=== PATIENT | female | born 1960 | race Caucasian/White ===

== ENCOUNTER 2024-10-12 12:11 | Inpatient (IN) | payer OTHER ==
[~2024-10-12] VITALS: Ht 167.6 cm; Wt 71.8 kg
[2024-10-12] MEDS: MORPHINE 2 MG/ML 1ML VIAL IV ONE ×2 (12:23→13:27)
[2024-10-12 12:40] LABS: BASO # 0.2 10^3/uL (0.0-0.2); BASO % 0.9 % (0.0-1.0); EOS # 0.3 10^3/uL (0.0-0.5); EOS % 1.9 % (0.0-3.0); HEMATOCRIT 32.7 % (36.0-47.0); HEMOGLOBIN 10.7 g/dl (12.0-15.5); LYMPH # 3.8 10^3/uL (1.5-5.0); LYMPH % 21.1 % (24.0-44.0); MEAN CORPUSCULAR HGB CONC 32.7 g/dl (32.0-36.5); MEAN CORPUSCULAR VOLUME 97.9 fl (80.0-96.0); MONO # 1.2 10^3/uL (0.0-0.8); MONO % 6.7 % (2.0-8.0); NEUTROPHILS # 12.3 10^3/uL (1.5-8.5); NEUTROPHILS % 68.7 % (36.0-66.0); PLATELET COUNT, AUTOMATED 614 10^3/uL (150-450); RED BLOOD COUNT 3.34 10^6/uL (4.00-5.40); WHITE BLOOD COUNT 17.8 10^3/uL (4.0-10.0)
[2024-10-12] MEDS: ceFAZolin SOD 1 GM in DEXTROSE 5% (D5W) ADV/MINI-BAG 50 ML IV ONE (12:55)
[2024-10-12 13:13] LABS: BLOOD UREA NITROGEN 12 MG/DL (9-23); CALCIUM LEVEL 9.7 MG/DL (8.3-10.6); CARBON DIOXIDE LEVEL 29 MMOL/L (20-31); CHLORIDE LEVEL 106 MMOL/L (98-107); CREATININE FOR GFR 0.51 MG/DL (0.55-1.30); GLOMERULAR FILTRATION RATE > 90.0 (>45); GLUCOSE, FASTING 108 MG/DL (74-106); SODIUM LEVEL 142 MMOL/L (136-145)
[2024-10-12] MEDS ORDERED: DILT180C70 PO (15:26)
[2024-10-12] MEDS ORDERED: ZOLP5TAB PO (15:26)
[2024-10-12] MEDS ORDERED: CELE0.09 PO (15:26)
[2024-10-12] MEDS ORDERED: LEVO75TA4 PO (15:26)
[2024-10-12] MEDS ORDERED: DULO1CAP6 PO (15:26)
[2024-10-12] MEDS ORDERED: ASPI-226 PO (15:26)
[2024-10-12] MEDS ORDERED: ROSU10TA61 PO (15:26)
[2024-10-12] MEDS ORDERED: VALS160T2 PO (15:26)
[2024-10-12] MEDS ORDERED: OMEP-173 PO (15:26)
[2024-10-12] MEDS ORDERED: HOME MED LIST COMPLETE! XX SCH (15:30)
[2024-10-12] MEDS ORDERED: LR 1,000 ML IV SCH (16:00)
[2024-10-12] MEDS: DOXYCYCLINE HYCLATE 100 MG in DEXTROSE 5% (D5W) MINI-BAG PLU 100 ML IV SCH (16:01)
[2024-10-12 16:13] LABS: APPEARANCE, URINE HAZY (CLEAR); BACTERIA, URINE AUTO 1+ (NEGATIVE); BILIRUBIN, URINE AUTO 1+ (NEGATIVE); BLOOD, URINE BLOOD NEGATIVE (NEGATIVE); COLOR, URINE AMBER (YELLOW); GLUCOSE, URINE (UA) AUTO NEGATIVE (NEGATIVE); KETONE, URINE AUTO TRACE mg/dL (NEGATIVE); LEUKOCYTE ESTERASE, URINE AUTO NEGATIVE (NEGATIVE); MUCUS, URINE MODERATE (NEGATIVE); NITRITE, URINE AUTO NEGATIVE (NEGATIVE); PROTEIN, URINE AUTO 2+ mg/dL (NEGATIVE); RBC, URINE AUTO 1 /HPF (0-3); SPECIFIC GRAVITY URINE AUTO 1.028 (1.002-1.035); SQUAMOUS EPITHELIAL CELL UR AU 4 /HPF (0-6); WBC, URINE AUTO 2 /HPF (0-3)
[2024-10-12] MEDS ORDERED: BACITRACIN OINTMENT 30GM TUBE As Ordered ONE (16:58)
[2024-10-12] MEDS ORDERED: KETOROLAC 30 MG/ML 1ML VIAL As Ordered ONE (17:12)
[2024-10-12] MEDS ORDERED: ACETAMINOPHEN 1000MG/100ML IV BAG As Ordered ONE (17:12)
[2024-10-12] MEDS ORDERED: ONDANSETRON 4MG 2ML VIAL As Ordered ONE (17:12)
[2024-10-12] MEDS ORDERED: propofoL 200 MG/20 ML VIAL As Ordered ONE (17:12)
[2024-10-12] MEDS ORDERED: LIDOCAINE 2% 100MG/5ML SDV (FOR ANES.) As Ordered ONE (17:12)
[2024-10-12] MEDS ORDERED: fentaNYL 100 MCG/2 ML INJECTION As Ordered ONE (17:13)
[2024-10-12] MEDS ORDERED: MIDAZOLAM INJ 2MG/2ML VIAL As Ordered ONE (17:13)
[2024-10-12] MEDS ORDERED: PHENYLephrine 500MCG 5ML (100MCG/ML) SYRINGE As Ordered ONE (17:54)
[2024-10-12] MEDS: EPINEPHrine INJ 1 MG/ML 1ML AMP As Ordered ONE (18:08)
[2024-10-12] MEDS ORDERED: ePHEDrine SULFATE 25 MG/5 ML(5MG/ML) SYRINGE As Ordered ONE (18:15)
[2024-10-12] MEDS: GENTAMICIN SULF 80MG/2ML VIAL As Ordered ONE (18:18)
[2024-10-12] MEDS ORDERED: HYDROmorphone HCL 2MG/ML 1ML VIAL As Ordered ONE (18:59)
[2024-10-12] MEDS ORDERED: fentaNYL 100 MCG/2 ML INJECTION IV PRN (19:20)
[2024-10-12] MEDS ORDERED: HYDROMORPHONE HCL 0.5 MG/ 0.5 ML SYRINGE IV PRN (19:20)
[2024-10-12] MEDS ORDERED: oxyCODONE 5MG TAB PO PRN (19:20)
[2024-10-12] MEDS ORDERED: ONDANSETRON 4MG 2ML VIAL IV PRN (19:20)
[2024-10-12] MEDS ORDERED: cefTRIAXone SOD 1GM VIAL As Ordered ONE (19:32)
[2024-10-12 20:10] VITALS: BP 141/81; TEMP 97.3; O2SAT 95
[2024-10-12 20:40] VITALS: BP 111/73; TEMP 97.2; O2SAT 98
[2024-10-12] MEDS: cefTRIAXone SOD 2 GM in DEXTROSE 5% (D5W) ADV/MINI-BAG 50 ML IV SCH (20:43)
[2024-10-12] MEDS: ROSUVASTATIN 10 MG TAB PO SCH (20:44)
[2024-10-12] MEDS: ASPIRIN 81MG ENTERIC TABLET PO SCH (20:44)
[2024-10-12] MEDS: LR 1,000 ML IV SCH ×2 (20:44→20:57)
[2024-10-12] MEDS: OMEPRAZOLE 20MG CAP PO SCH (20:45)
[2024-10-12] MEDS: DULoxetine 30MG CAPSULE PO SCH (20:45)
[2024-10-12] MEDS: dilTIAZem **CD** 180MG CAP PO SCH (21:00)
[2024-10-12 21:10] VITALS: BP 107/71; TEMP 97.2; O2SAT 95
[2024-10-12 22:00] VITALS: BP 99/77; TEMP 96.6; O2SAT 95
[2024-10-12 23:00] VITALS: BP 99/58; TEMP 96.6; O2SAT 96
[2024-10-13] VITALS (7 sets, daily range): BP systolic 100–142; BP diastolic 65–78; TEMP 96.8–97.9; O2SAT 94–97
[2024-10-13] MEDS: oxyCODONE 5MG TAB PO PRN (04:18)
[2024-10-13] MEDS: LEVOTHYROXINE 75MCG TABLET (0.075MG) PO SCH (06:04)
[2024-10-13 06:36] LABS: HEMATOCRIT 30.4 % (36.0-47.0); HEMOGLOBIN 9.8 g/dl (12.0-15.5); MEAN CORPUSCULAR HEMOGLOBIN 31.5 pg (27.0-33.0); MEAN CORPUSCULAR HGB CONC 32.2 g/dl (32.0-36.5); MEAN CORPUSCULAR VOLUME 97.7 fl (80.0-96.0); RED BLOOD COUNT 3.11 10^6/uL (4.00-5.40); WHITE BLOOD COUNT 13.8 10^3/uL (4.0-10.0)
[2024-10-13 06:41] LABS: PLATELET COUNT, AUTOMATED 518 10^3/uL (150-450)
[2024-10-13 06:49] LABS: BLOOD UREA NITROGEN 13 MG/DL (9-23); CALCIUM LEVEL 8.5 MG/DL (8.3-10.6); CARBON DIOXIDE LEVEL 24 MMOL/L (20-31); CHLORIDE LEVEL 105 MMOL/L (98-107); CREATININE FOR GFR 0.44 MG/DL (0.55-1.30); GLOMERULAR FILTRATION RATE > 90.0 (>45); GLUCOSE, FASTING 154 MG/DL (74-106); POTASSIUM SERUM 4.5 MMOL/L (3.5-5.1); SODIUM LEVEL 137 MMOL/L (136-145)
[2024-10-13] MEDS: hydroCHLOROthiazide 12.5 MG CAPSULE PO SCH (09:13)
[2024-10-13] MEDS: NICOTINE 14 MG/24 HR TRANSDERMAL TD SCH (09:14)
[2024-10-13] MEDS: VALSARTAN 80MG TAB PO SCH (11:28)
[2024-10-13] MEDS: DOXYCYCLINE HYCLATE 100MG TABLET PO SCH (20:14)
[2024-10-13] MEDS: zolPIDEM TARTRATE 5 MG TAB PO PRN (20:14)
[2024-10-13] MEDS: AUGMENTIN 875 MG TAB PO SCH (20:14)
[2024-10-14] VITALS: BP 126/79; TEMP 97.3; O2SAT 92
[2024-10-14 04:30] VITALS: BP 138/84; TEMP 97; O2SAT 96
[2024-10-14 06:02] LABS: HEMATOCRIT 29.5 % (36.0-47.0); HEMOGLOBIN 9.5 g/dl (12.0-15.5); MEAN CORPUSCULAR HEMOGLOBIN 31.3 pg (27.0-33.0); MEAN CORPUSCULAR HGB CONC 32.2 g/dl (32.0-36.5); PLATELET COUNT, AUTOMATED 527 10^3/uL (150-450); RED BLOOD COUNT 3.04 10^6/uL (4.00-5.40); WHITE BLOOD COUNT 13.5 10^3/uL (4.0-10.0)
[2024-10-14 06:20] LABS: BLOOD UREA NITROGEN 14 MG/DL (9-23); CALCIUM LEVEL 8.7 MG/DL (8.3-10.6); CARBON DIOXIDE LEVEL 29 MMOL/L (20-31); CHLORIDE LEVEL 106 MMOL/L (98-107); CREATININE FOR GFR 0.51 MG/DL (0.55-1.30); GLOMERULAR FILTRATION RATE > 90.0 (>45); GLUCOSE, FASTING 118 MG/DL (74-106); POTASSIUM SERUM 4.2 MMOL/L (3.5-5.1); SODIUM LEVEL 142 MMOL/L (136-145)
[2024-10-14 08:45] VITALS: BP 121/79; TEMP 96.8; O2SAT 96
[2024-10-14 12:00] VITALS: BP 136/79; TEMP 97.9; O2SAT 96
[2024-10-14 16:00] VITALS: BP 131/77; TEMP 98.5; O2SAT 98
[2024-10-14 20:04] VITALS: BP 122/84; TEMP 98.7; O2SAT 95
[2024-10-15] VITALS (7 sets, daily range): BP systolic 117–148; BP diastolic 62–93; TEMP 97–97.9; O2SAT 92–97
[2024-10-15 06:27] LABS: HEMATOCRIT 31.2 % (36.0-47.0); MEAN CORPUSCULAR HEMOGLOBIN 30.8 pg (27.0-33.0); MEAN CORPUSCULAR HGB CONC 32.1 g/dl (32.0-36.5); PLATELET COUNT, AUTOMATED 556 10^3/uL (150-450); RED BLOOD COUNT 3.25 10^6/uL (4.00-5.40); WHITE BLOOD COUNT 11.8 10^3/uL (4.0-10.0)
[2024-10-15 07:02] LABS: BLOOD UREA NITROGEN 10 MG/DL (9-23); CALCIUM LEVEL 8.9 MG/DL (8.3-10.6); CARBON DIOXIDE LEVEL 29 MMOL/L (20-31); CHLORIDE LEVEL 106 MMOL/L (98-107); CREATININE FOR GFR 0.48 MG/DL (0.55-1.30); GLOMERULAR FILTRATION RATE > 90.0 (>45); GLUCOSE, FASTING 104 MG/DL (74-106); POTASSIUM SERUM 4.3 MMOL/L (3.5-5.1); SODIUM LEVEL 140 MMOL/L (136-145)
[2024-10-15] MEDS: ACETAMINOPHEN 500 MG TAB PO PRN (21:00)
[2024-10-16] VITALS (7 sets, daily range): BP systolic 103–121; BP diastolic 58–83; TEMP 97–99.2; O2SAT 93–97
[2024-10-16 07:04] LABS: HEMATOCRIT 34.8 % (36.0-47.0); MEAN CORPUSCULAR HEMOGLOBIN 30.5 pg (27.0-33.0); MEAN CORPUSCULAR HGB CONC 31.6 g/dl (32.0-36.5); MEAN CORPUSCULAR VOLUME 96.4 fl (80.0-96.0); PLATELET COUNT, AUTOMATED 607 10^3/uL (150-450); RED BLOOD COUNT 3.61 10^6/uL (4.00-5.40); WHITE BLOOD COUNT 12.1 10^3/uL (4.0-10.0)
[2024-10-16 07:27] LABS: BLOOD UREA NITROGEN 10 MG/DL (9-23); CALCIUM LEVEL 9.2 MG/DL (8.3-10.6); CARBON DIOXIDE LEVEL 30 MMOL/L (20-31); CHLORIDE LEVEL 105 MMOL/L (98-107); CREATININE FOR GFR 0.47 MG/DL (0.55-1.30); GLOMERULAR FILTRATION RATE > 90.0 (>45); GLUCOSE, FASTING 94 MG/DL (74-106); SODIUM LEVEL 142 MMOL/L (136-145)
[2024-10-17] VITALS (8 sets, daily range): BP systolic 99–138; BP diastolic 65–83; TEMP 96.8–98.3; O2SAT 94–99
[2024-10-17 05:55] LABS: HEMATOCRIT 31.9 % (36.0-47.0); HEMOGLOBIN 10.3 g/dl (12.0-15.5); MEAN CORPUSCULAR HEMOGLOBIN 30.6 pg (27.0-33.0); MEAN CORPUSCULAR HGB CONC 32.3 g/dl (32.0-36.5); MEAN CORPUSCULAR VOLUME 94.7 fl (80.0-96.0); PLATELET COUNT, AUTOMATED 567 10^3/uL (150-450); RED BLOOD COUNT 3.37 10^6/uL (4.00-5.40); WHITE BLOOD COUNT 11.8 10^3/uL (4.0-10.0)
[2024-10-17 06:24] LABS: BLOOD UREA NITROGEN 10 MG/DL (9-23); CALCIUM LEVEL 9.2 MG/DL (8.3-10.6); CARBON DIOXIDE LEVEL 27 MMOL/L (20-31); CHLORIDE LEVEL 105 MMOL/L (98-107); CREATININE FOR GFR 0.45 MG/DL (0.55-1.30); GLOMERULAR FILTRATION RATE > 90.0 (>45); GLUCOSE, FASTING 105 MG/DL (74-106); POTASSIUM SERUM 3.8 MMOL/L (3.5-5.1); SODIUM LEVEL 139 MMOL/L (136-145)
[2024-10-17 11:55] LABS: C REACTIVE PROTEIN QUANTITATIV 5.57 MG/DL (<1.0)
[2024-10-17 12:27] LABS: ERYTHROCYTE SEDIMENTATION RATE 65 mm/hr (0-30)
[2024-10-18 00:08] VITALS: BP 113/77; TEMP 97.2; O2SAT 98
[2024-10-18 04:35] VITALS: BP 109/76; TEMP 96.8; O2SAT 95
[2024-10-18 06:18] LABS: HEMATOCRIT 31.3 % (36.0-47.0); HEMOGLOBIN 10.2 g/dl (12.0-15.5); MEAN CORPUSCULAR HEMOGLOBIN 30.8 pg (27.0-33.0); MEAN CORPUSCULAR HGB CONC 32.6 g/dl (32.0-36.5); MEAN CORPUSCULAR VOLUME 94.6 fl (80.0-96.0); PLATELET COUNT, AUTOMATED 565 10^3/uL (150-450); RED BLOOD COUNT 3.31 10^6/uL (4.00-5.40); WHITE BLOOD COUNT 11.4 10^3/uL (4.0-10.0)
[2024-10-18 06:49] LABS: BLOOD UREA NITROGEN 14 MG/DL (9-23); CALCIUM LEVEL 9.1 MG/DL (8.3-10.6); CARBON DIOXIDE LEVEL 26 MMOL/L (20-31); CHLORIDE LEVEL 105 MMOL/L (98-107); CREATININE FOR GFR 0.44 MG/DL (0.55-1.30); GLOMERULAR FILTRATION RATE > 90.0 (>45); GLUCOSE, FASTING 92 MG/DL (74-106); SODIUM LEVEL 140 MMOL/L (136-145)
[2024-10-18 08:00] VITALS: BP 101/69; TEMP 97.5; O2SAT 96
[2024-10-18 09:00] VITALS: BP 102/66
[2024-10-18 12:00] VITALS: BP 116/72; TEMP 97.3; O2SAT 96
== END 2024-10-18 17:20 | disposition home health service (06) | DRG 361 ==
LOC: M ED 12:11 → M ED INP 15:28 → M MS5PR 20:32
PROVIDERS: ADMIT Student in an Organized Health Care Education/Training Program; ATTEND Internal Medicine
PROC: 0Y9H0ZZ Drainage of Right Lower Leg, Open Approach (ICD-10-PCS; 2024-10-12)
PROC: 0HRKX73 Replacement of Right Lower Leg Skin with Autologous Tissue Substitute, Full Thickness, External Approach (ICD-10-PCS; principal; 2024-10-12 17:30)
DX: S81.811A Laceration without foreign body, right lower leg, initial encounter (principal); I10 Essential (primary) hypertension; D64.9 Anemia, unspecified; E03.9 Hypothyroidism, unspecified; E78.5 Hyperlipidemia, unspecified; F17.210 Nicotine dependence, cigarettes, uncomplicated; K21.9 Gastro-esophageal reflux disease without esophagitis; W10.9XXA Fall (on) (from) unspecified stairs and steps, initial encounter; Z96.651 Presence of right artificial knee joint; G47.00 Insomnia, unspecified; Z79.899 Other long term (current) drug therapy; Z79.890 Hormone replacement therapy; Z88.2 Allergy status to sulfonamides; Z88.8 Allergy status to other drugs, medicaments and biological substances; Y92.009 Unspecified place in unspecified non-institutional (private) residence as the place of occurrence of the external cause

== ENCOUNTER 2024-12-06 07:53 | Observation (INO) | payer OTHER ==
[2024-12-06] VITALS (9 sets, daily range): BP systolic 80–116; BP diastolic 56–75; TEMP 97.3–97.7; O2SAT 87–93
[~2024-12-06] VITALS: Ht 167.6 cm; Wt 63.5 kg
[~2024-12-06 07:53] MED LIST: ASPI-226 PO; CELE0.09 PO; DILT180C70 PO; DULO1CAP6 PO; LEVO75TA4 PO; OMEP-173 PO; ROSU10TA61 PO; VALS160T2 PO; ZOLP5TAB PO
[2024-12-06] MEDS ORDERED: LR 1,000 ML IV SCH (08:25)
[2024-12-06] MEDS ORDERED: HOME MED LIST COMPLETE! XX SCH (08:45)
[2024-12-06] MEDS ORDERED: dexAMETHasone 4 MG/ML 1 ML VIAL As Ordered ONE (09:31)
[2024-12-06] MEDS ORDERED: ONDANSETRON 4MG 2ML VIAL As Ordered ONE (09:31)
[2024-12-06] MEDS ORDERED: LIDOCAINE 2% 100 MG/5 ML SDV (FOR ANES.) As Ordered ONE (09:31)
[2024-12-06] MEDS ORDERED: MIDAZOLAM INJ 2 MG/2 ML VIAL As Ordered ONE (09:34)
[2024-12-06] MEDS: ceFAZolin SOD 2 GM IV ONCE IV ONE (10:40)
[2024-12-06] MEDS ORDERED: ACETAMINOPHEN 1000MG/100ML IV BAG As Ordered ONE (10:54)
[2024-12-06] MEDS: HEPARIN SOD 5000 UNITS/ML 1 ML VIAL/SYRINGE SQ ONE (11:01)
[2024-12-06] MEDS: EPINEPHrine INJ 1 MG/ML 1ML AMP As Ordered ONE (11:03)
[2024-12-06] MEDS: GENTAMICIN SULF 80 MG/2 ML VIAL As Ordered ONE (11:03)
[2024-12-06] MEDS ORDERED: ONDANSETRON 4MG 2ML VIAL IV PRN (11:40)
[2024-12-06] MEDS ORDERED: MORPHINE 2 MG/ML 1 ML VIAL IV PRN (11:40)
[2024-12-06] MEDS ORDERED: MOM 30 ML SUSPENSION UDC PO PRN (12:05)
[2024-12-06] MEDS ORDERED: MAALOX 30 ML SUSP *UDC PO PRN (12:05)
[2024-12-06] MEDS: NS (Normal Saline) 0.9% 1,000 ML IV SCH (16:06)
[2024-12-06] MEDS: dilTIAZem 180 MG **CD** CAPSULE PO SCH (21:00)
[2024-12-06] MEDS: DOCUSATE SODIUM 100 MG CAPSULE PO SCH (21:00)
[2024-12-06] MEDS: VALSARTAN 80MG TAB PO SCH (21:00)
[2024-12-06] MEDS: ASPIRIN 81 MG ENTERIC TABLET PO SCH (21:32)
[2024-12-06] MEDS: OMEPRAZOLE 20MG CAP PO SCH (21:34)
[2024-12-06] MEDS: ENOXAPARIN 40 MG/0.4 ML SYRINGE (J1650 PER 10MG) SC SCH (21:36)
[2024-12-06] MEDS: ROSUVASTATIN 10 MG TAB PO SCH (21:37)
[2024-12-06] MEDS: NICOTINE 14 MG/24 HR TRANSDERMAL TD PRN (21:45)
[2024-12-07 00:30] VITALS: BP 113/73; TEMP 97.3; O2SAT 90
[2024-12-07 04:00] VITALS: BP 130/82; TEMP 97.3; O2SAT 90
[2024-12-07 05:49] LABS: BASO # 0.0 10^3/uL (0.0-0.2); BASO % 0.2 % (0.0-1.0); EOS # 0.0 10^3/uL (0.0-0.5); EOS % 0.2 % (0.0-3.0); LYMPH # 2.0 10^3/uL (1.5-5.0); LYMPH % 19.4 % (24.0-44.0); MONO # 0.7 10^3/uL (0.0-0.8); MONO % 7.0 % (2.0-8.0); NEUTROPHILS # 7.4 10^3/uL (1.5-8.5); NEUTROPHILS % 72.6 % (36.0-66.0); PLATELET COUNT, AUTOMATED 523 10^3/uL (150-450)
[2024-12-07 06:19] LABS: CALCIUM LEVEL 8.8 MG/DL (8.3-10.6); CARBON DIOXIDE LEVEL 27 MMOL/L (20-31); CHLORIDE LEVEL 105 MMOL/L (98-107); CREATININE FOR GFR 0.45 MG/DL (0.55-1.30); GLOMERULAR FILTRATION RATE > 90.0 (>45); MAGNESIUM LEVEL 1.7 MG/DL (1.8-2.4); POTASSIUM SERUM 4.3 MMOL/L (3.5-5.1); SODIUM LEVEL 141 MMOL/L (136-145)
[2024-12-07] MEDS: LEVOTHYROXINE 75 MCG TABLET (0.075 MG) PO SCH (06:36)
[2024-12-07 08:07] VITALS: BP 141/84; TEMP 97.9; O2SAT 95
[2024-12-07] MEDS: MAG SULF 1GM/100ML (MAG RUN) 1 GM in IV 1 EA IV ONE (08:25)
[2024-12-07 12:09] VITALS: BP 141/84; TEMP 97.7; O2SAT 95
[2024-12-07 19:37] VITALS: BP 113/69; TEMP 96.8; O2SAT 94
[2024-12-08 04:12] VITALS: BP 140/78; TEMP 97.9; O2SAT 94
[2024-12-08 07:47] LABS: PLATELET COUNT, AUTOMATED 566 10^3/uL (150-450)
[2024-12-08 08:17] LABS: CALCIUM LEVEL 8.7 MG/DL (8.3-10.6); CARBON DIOXIDE LEVEL 28 MMOL/L (20-31); CHLORIDE LEVEL 106 MMOL/L (98-107); CREATININE FOR GFR 0.49 MG/DL (0.55-1.30); GLOMERULAR FILTRATION RATE > 90.0 (>45); MAGNESIUM LEVEL 1.8 MG/DL (1.8-2.4); POTASSIUM SERUM 4.3 MMOL/L (3.5-5.1); SODIUM LEVEL 143 MMOL/L (136-145)
[2024-12-08] MEDS: CYCLOBENZAPRINE 5 MG TABLET PO PRN (08:50)
[2024-12-08 09:06] LABS: BASOPHILS 3 % (0-1); EOSINOPHILS 1 % (0-3); LYMPHOCYTES 34 % (16-44); MONOCYTES 6 % (0-5); NEUTROPHILS 56 % (28-66)
[2024-12-08 09:07] LABS: PLATELET ESTIMATE INCREASED (NORMAL)
[2024-12-08 12:00] VITALS: BP 124/83; TEMP 97.5; O2SAT 96
[2024-12-08 19:50] VITALS: BP 99/68; TEMP 97; O2SAT 93
[2024-12-09 03:50] VITALS: BP 139/87; TEMP 97.3; O2SAT 92
[2024-12-09 05:59] LABS: PLATELET COUNT, AUTOMATED 532 10^3/uL (150-450)
[2024-12-09] MEDS: LINEZOLID 600 MG TABLET PO SCH (08:10)
[2024-12-09 12:00] VITALS: BP 114/76; TEMP 97.5; O2SAT 96
[2024-12-09] MEDS: ACETAMINOPHEN 325 MG TAB PO PRN (21:57)
[2024-12-10 06:06] VITALS: BP 116/72; TEMP 97; O2SAT 96
[2024-12-10] MEDS: NS (Normal Saline) 0.9% 1,000 ML IV ONE (13:23)
[2024-12-10 13:28] LABS: BASO # 0.1 10^3/uL (0.0-0.2); BASO % 0.5 % (0.0-1.0); EOS # 0.2 10^3/uL (0.0-0.5); EOS % 1.6 % (0.0-3.0); LYMPH # 1.8 10^3/uL (1.5-5.0); LYMPH % 17.0 % (24.0-44.0); MONO # 1.0 10^3/uL (0.0-0.8); MONO % 9.0 % (2.0-8.0); NEUTROPHILS # 7.5 10^3/uL (1.5-8.5); NEUTROPHILS % 71.2 % (36.0-66.0); PLATELET COUNT, AUTOMATED 497 10^3/uL (150-450)
[2024-12-10 13:56] LABS: CALCIUM LEVEL 9.0 MG/DL (8.3-10.6); CARBON DIOXIDE LEVEL 30 MMOL/L (20-31); CHLORIDE LEVEL 100 MMOL/L (98-107); CREATININE FOR GFR 0.65 MG/DL (0.55-1.30); GLOMERULAR FILTRATION RATE > 90.0 (>45); MAGNESIUM LEVEL 1.6 MG/DL (1.8-2.4); POTASSIUM SERUM 4.0 MMOL/L (3.5-5.1); SODIUM LEVEL 140 MMOL/L (136-145)
[2024-12-10] MEDS: MAGNESIUM OXIDE 400 MG TAB PO SCH (15:18)
[2024-12-10 19:45] VITALS: BP 101/62; TEMP 97.9; O2SAT 96
[2024-12-11 20:46] VITALS: BP 122/73
[2024-12-12 04:00] VITALS: BP 115/74; TEMP 97.3; O2SAT 95
[2024-12-12 06:04] LABS: BASO # 0.1 10^3/uL (0.0-0.2); BASO % 0.7 % (0.0-1.0); EOS # 0.3 10^3/uL (0.0-0.5); EOS % 2.7 % (0.0-3.0); LYMPH # 3.2 10^3/uL (1.5-5.0); LYMPH % 28.6 % (24.0-44.0); MONO # 1.0 10^3/uL (0.0-0.8); MONO % 8.7 % (2.0-8.0); NEUTROPHILS # 6.5 10^3/uL (1.5-8.5); NEUTROPHILS % 58.6 % (36.0-66.0); PLATELET COUNT, AUTOMATED 443 10^3/uL (150-450)
[2024-12-12 06:07] LABS: PLATELET COUNT, AUTOMATED 455 10^3/uL (150-450)
[2024-12-12 06:25] LABS: CALCIUM LEVEL 8.6 MG/DL (8.3-10.6); CARBON DIOXIDE LEVEL 30 MMOL/L (20-31); CHLORIDE LEVEL 105 MMOL/L (98-107); CREATININE FOR GFR 0.62 MG/DL (0.55-1.30); GLOMERULAR FILTRATION RATE > 90.0 (>45); MAGNESIUM LEVEL 1.8 MG/DL (1.8-2.4); POTASSIUM SERUM 4.4 MMOL/L (3.5-5.1); SODIUM LEVEL 142 MMOL/L (136-145)
[2024-12-12 11:18] VITALS: BP 123/66; O2SAT 98
[2024-12-12] MEDS ORDERED: COLA100C5 PO (11:50)
[2024-12-12] MEDS ORDERED: OXYC-517 PO (11:50)
[2024-12-12] MEDS ORDERED: MAGN400T33 PO (11:50)
== END 2024-12-12 13:10 | disposition home or self-care (01) ==
LOC: M SDC 07:53 → EEVIPCON 12:03 → INTOOBSV 12:03 → M RR INP 12:03 → M MS5PR 12:38
PROVIDERS: ADMIT Internal Medicine; ATTEND Internal Medicine
DX: S81.801A Unspecified open wound, right lower leg, initial encounter (principal); D72.829 Elevated white blood cell count, unspecified; I10 Essential (primary) hypertension; J44.9 Chronic obstructive pulmonary disease, unspecified; F17.210 Nicotine dependence, cigarettes, uncomplicated; E03.9 Hypothyroidism, unspecified; D64.9 Anemia, unspecified; D75.839 Thrombocytosis, unspecified; K21.9 Gastro-esophageal reflux disease without esophagitis; Z79.82 Long term (current) use of aspirin; Z79.899 Other long term (current) drug therapy; F39 Unspecified mood [affective] disorder; G47.00 Insomnia, unspecified; Z88.8 Allergy status to other drugs, medicaments and biological substances
CPT/HCPCS: 11042; 11045; 15100; 15101; 36415; 80048; 83605; 83735; 85025; 85027; 87070; 87075; 87076; 87077; 87186; 87205; 88304; 96361; 96372; 96374; J0131; J0166; J0690; J1100; J1580; J1650; J2250; J2405; J3010; J3475